=== PATIENT | female | born 1985 | race Caucasian/White ===

== ENCOUNTER 2016-12-14 10:23 | Day surgery (SDC) | payer OTHER ==
[2016-12-14] VITALS (10 sets, daily range): BP systolic 108–122; BP diastolic 60–69; PULSE 72–92; RESP 13–19; O2SAT 99–100
[~2016-12-14] VITALS: Ht 165.1 cm; Wt 52.7 kg
--- NOTE | 2016-12-14 06:48 | PCM.HPANE ---
Patient Data Surgeon Admitting Provider: Attending Provider:Torito Lin MD Primary Care Physician:Myriam Ashby MD Other Provider:Ashly Bautista Anesthesia Reason for Visit Missed Ab Ht/WT & BMI Height (Feet): 5 Height (Inches): 5.5 Weight (Kilograms): 53.97 Body Mass Index 19.00 Allergies Coded Allergies: No Known Allergies (Unverified , 06/06/16) Past Anesthesia History Anesthesia History: Denies:: Abnormal Airway, Anesthesia Reactions, Difficult Intubation, Fam Anesthesia Reaction (mother - nausea), Fam Malignant Hypertherm , Malignant Hyperthermia Diabetes History Hx Diabetes?: No MRSA MRSA: No Medications Hypertension Medication: No Home Meds Incl Beta Clement: No Reported Medications Vits #90/Iron Fum/FA ( Formula Tablet)1 Each Tablet1 Each PO DAILY 12/13/16 Discontinued Scripts Tramadol 50 Mg [id number] Mg PO TID PRN For Pain #30 TABLET Ref 0 Prov:Russell Newman MD 06/07/16 Tramadol 50 Mg [id number] Mg PO Q4H PRN For Pain #20 TABLET Prov:Renzo San DO 11/01/15 Naproxen 500 Mg [id number] Mg PO BID PRN For Pain #30 TABLET Prov:Renzo San DO 11/01/15 History HEENT History: Denies:: Abnormal Airway Cataracts Difficult Intubation Dysphagia Glaucoma Hearing Problem Sinus Problem TMJ Cardiovascular History: Denies:: AICD Abdominal Aortic Aneurism Atrial Fibrillation Cardiac Surgery Chest Pain Congestive Heart Failure Coronary Artery Disease Edema Heart Murmur Hypertension Irregular Heartbeat Pacemaker Peripheral Vascular Hx of Respiratory Problem?: Yes Respiratory History: Positive for:: Asthma Denies:: COPD Emphysema Oxygen Administration Pneumonia Tuberculosis Use of C-PAP Machine Use of Inhalers / NEBS Hx Neurologic Problems?: No Neurological History: Denies:: CVA Dementia Dizziness Headaches Multiple Sclerosis Parkinson's Disease Seizures TIA Hx of GI Problems?: No Gastrointestinal History: Denies:: Cirrhosis Diverticulitis Gall Bladder Disease Gastroesphageal Reflux Gastrointestinal Bleeding Heartburn Hepatitis Hiatal Hernia Liver Disease Hx of Problems?: No Genitourinary History: Denies:: Kidney Stones Urinary Tract Infection Female Hx: Positive for:: Endometriosis (left ovarian cystectomy, salgingectomy Jul 2016) Denies:: Currently (missed ab current admission ) Problems with Breasts? (breast bx- benign) Skin History: Denies:: History Skin Disorders? Pressure Ulcers Hx Musculoskeletal Problems?: No Musculoskeletal History: Denies:: Back Injury Fibromyalgia Joint Replacement Musculoskeletal Trauma Myasthenia Gravis Osteoarthritis Systemic Lupus Hx of Psycho/Social Problems?: No Psycho Social History: Denies:: Anxiety Hx Depression Hx Surgeries?: Yes (appendectomy, ovarian cystectomy-lysis of adhesions, lap) Hx Any Other Health Problems?: Yes Other History: Denies:: Cancer Thyroid Disease History Blood Transfusions: Positive for:: Accept Blood Products? Denies:: Blood Transfusions Hx Diabetes: No Hx Alcohol Use: NoHx Substance Use: No Smoking Status: Never Smoker Have You Smoked inLast 12 mo: No Stop/Bang S-Snoring: Do You Snore Loudly: No T-Tired: feel tired, fatigued: No O-Obsered: Observed not breath: No P-Blood Pressure: treated: No B- Body Mass Index > 35 kg/m2: No A- Age over 50: No N- Neck Large Circumference: No G- Gender Male: No GENET Total Score: 0 GENET Risk Assessment: Low Risk, <3 Yes Risk Assessment Category Category 1A: Patient has history of documented sleep apnea, and HAS NOT received any narcotic, sedative or anesthesia administration during this stay. Category 1B: Patient has history of documented sleep apnea, and HAS received any narcotic , sedative or anesthesia administration during this stay Category 2: Patient has SUSPECTED Obstructive Sleep Apnea, and HAS received any narcotic , sedative or anesthesia administration during this stay. Category 3: Patient has SUSPECTED Obstructive Sleep Apnea and HAS NOT received narcotic, sedative or anesthesia administration during this stay. Category 4: Outpatient in Procedural Areas with known sleep apnea or who screen positive for High Risk via the STOP/BANG questionnaire. Exam Exam General Appearance: Alert, Oriented X3, Cooperative, No Acute Distress HEENT/AIRWAY: MP 2 Lungs: Clear to Auscultation, Normal Air Movement Heart: Exam Unremarkable, Regular Rate/Rhythm, No Murmurs/Rubs/Gallops Plan Impression Patient chart reviewed, patient interviewed and anesthestic plan with risks, benefits, and alternatives discussed, and informed consent obtained. Anesthetic Plan: GA Bene/Risks/Altern/Consents: Yes HP Complete Prior to Induction: Yes Glendy Beckett MD Dec 14, 2016 06:48
--- NOTE | 2016-12-14 09:00 | HP PRE OP ---
[address] [address] PREOPERATIVE HISTORY AND PHYSICAL PATIENT: ASHA PENN : 1985 MR#: [id number] ADMIT: 12/14/2016 JOB ID: [id number] IDENTIFICATION DATA: The patient is a 31-year-old G 2, P 0, AB 1 woman. CHIEF COMPLAINT: First trimester missed , for surgical intervention at patient request. HISTORY OF PRESENT ILLNESS: This patient presented to my office for initial visit on December 13, 2016 at 9 and 5/7 weeks along in her . However, ultrasound in my office, demonstrated size although small, in the 8 and 6/7 weeks size range, and there was no heartbeat, and thus first-trimester missed was diagnosed. Formal ultrasound was also accomplished for confirmation. The patient was given options of observation with expectant management for miscarriage versus suction D and C procedure. She definitively chose D and C, understanding that is a surgery, typically a minor procedure for which she we go home afterwards although there is a chance that there could be complication leading to longer hospital stay, more major surgery, etc. She has understood that there are risks including bleeding, infection, cervical or uterine wall perforation, potential need for laparotomy for repair. There could be anesthetic risks, etc. All questions have been answered, no guarantees have been stated or implied, and the patient has signed informed consent for suction D and C. In summary, then, the patient will be admitted to [facility] on December 14, 2016 on which day she will undergo suction D and C procedure in the setting of first trimester missed . PHYSICAL EXAMINATION: On admission, height 65-1/2 inches. Weight 119 pounds. Blood pressure 104/60. Neck: No thyromegaly. Lungs clear to auscultation and percussion. Heart: Regular in rate and rhythm. Abdomen: Nontender. No mass. Note surgical scarring including laparoscopic scars as well as midline lower abdominal vertical scar with keloid formation. Pelvic examination: Vulva, vagina and cervix. No obvious epithelial abnormality. No obvious uterine or adnexal mass, uterus mildly enlarged, consistent with early . DIAGNOSTIC DATA: Preoperative hemoglobin 13.3, platelets 253, O-positive, TSH normal at 1.37. IMPRESSION: 1. First-trimester missed , with patient requesting suction D and C, as therapy. 2. Prior first trimester elective termination in 2007, at time of significant endometriosis condition with pain, having been told that she might have complications with the related to the endometriosis. 3. Surgical history: a. Elective termination, 2007. b. Laparoscopy in 2007, endometriosis. c. Laparoscopy in 2008, endometriosis. d. Laparotomy via midline lower abdominal incision in July of 2016, with finding of severe (stage 4) endometriosis. There was a large left ovarian cyst reportedly, left ovary adherence to colon wall, significant bowel adhesions with partial obstruction, left ureteral obstruction related to adhesions. Procedures performed at laparotomy include adhesiolysis, removal of left ovary and tube, no bowel resection or right tubal surgery. e. Appendectomy (1997). 4. Stage 4 endometriosis, see prior surgical history in July 2016. Note significant surgical history, significant adhesions, reported right tubal obstruction although intrauterine occurred as noted currently, and blood in stool around period time over time although having resolved during the past 20 days during this (prior colonoscopies reportedly did not see endometriosis, although cheese cooker reported that they would not necessarily see it, but the bowel lining was boggy and narrowed. Note that following surgery in July 2016, period pain became much more tolerable, generalized pelvic pain throughout the month diminished or disappeared, and left flank pain noted preoperatively resolved. 5. Infertility, having tried for four years to become before this current unsuccessful first trimester , noting endometriosis history and recent major surgery with adhesions, tubal finding, etc. 6. Asthma history, no medications utilized. 7. Allergy to BEES. 8. History of urinary tract infection or vaginal infection, details? 9. Family history of diabetes (parents, grandfather), hypertension (mother), asthma (mother). PLAN: The patient will undergo suction D and C procedure for first trimester missed on December 14, 2016.
[~2016-12-14 10:23] MED LIST: PREN-100 PO
[2016-12-14] MEDS ORDERED: Dexamethasone 4 mg/mL Inj ONE (10:24)
[2016-12-14] MEDS ORDERED: fentaNYL-PF 50 mCg/mL 2 mL Inj ONE (10:24)
[2016-12-14] MEDS ORDERED: Ondansetron 2 mg/mL 2 mL Inj ONE (10:24)
[2016-12-14] MEDS ORDERED: Propofol 10,000 mCg/mL 20 mL Inj ONE (10:24)
[2016-12-14] MEDS ORDERED: Lactated Ringer's 1,000 ML IV ONE (11:05)
[2016-12-14] MEDS ORDERED: HYDROmorphone 1 mg/mL Inj IVPUSH PRN ×2 (13:25→13:35)
[2016-12-14] MEDS ORDERED: MetoCLOpramide 5 mg/mL 2 mL Inj IVPUSH PRN ×2 (13:25→13:35)
[2016-12-14] MEDS ORDERED: Ondansetron 2 mg/mL 2 mL Inj IVPUSH PRN ×2 (13:25→13:35)
[2016-12-14] MEDS ORDERED: Lactated Ringer's 1,000 ML IV SCH (13:33)
[2016-12-14] MEDS ORDERED: Lactated Ringer's 500 ML IV PRN (13:33)
[2016-12-14] MEDS ORDERED: EPHEDrine Sulfate 50 mg/mL Inj IVPUSH PRN (13:35)
[2016-12-14] MEDS ORDERED: Dexamethasone 4 mg/mL Inj IVPUSH PRN (13:35)
[2016-12-14] MEDS ORDERED: hydrALAZINE 20 mg/mL Inj IVPUSH PRN (13:35)
[2016-12-14] MEDS ORDERED: fentaNYL-PF 50 mCg/mL 2 mL Inj IVPUSH PRN (13:35)
[2016-12-14] MEDS ORDERED: Atropine 0.4 mg/mL Inj IVPUSH PRN (13:35)
[2016-12-14] MEDS ORDERED: Labetalol 5 mg/mL 4 mL Inj IV PRN (13:35)
[2016-12-14] MEDS ORDERED: Phenylephrine 10,000 mCg/mL Inj IVPUSH PRN (13:35)
--- NOTE | 2016-12-14 15:36 | PCM.ANEP1 ---
Post Anesthesia Phase 1 PACU Phase 1 Assessment Vital Signs Vital Signs Date Time Temp Pulse Resp B/P Pulse Ox O2 Delivery O2 Flow Rate FiO2 12/14/16 15:25 36.4 78 16 122/65 100 Room Air 12/14/16 15:15 36.7 72 16 110/60 100 Room Air 12/14/16 15:05 79 15 113/69 99 Room Air 12/14/16 15:00 36.7 74 15 117/63 100 Room Air 12/14/16 14:55 82 15 122/67 99 Room Air 12/14/16 14:50 83 19 122/67 100 Room Air 12/14/16 14:45 81 14 112/62 100 Room Air 12/14/16 14:40 78 13 111/69 100 Room Air 12/14/16 14:35 36.9 92 17 112/68 100 Simple Mask 8 12/14/16 11:00 36.9 72 14 108/60 100 Room Air Anesthetic Administered: GA Level of Alertness: Awake, talking NY's with Equal Strength: Yes Pain: No Oxygen Delivery: Simple Mask Lungs: Clear to Auscultation, Normal Air Movement Glendy Beckett MD Dec 14, 2016 15:36
--- NOTE | 2016-12-14 15:43 | PCM.ANEP2 ---
Post Anesthesia Evaluation ASA/CMS Post Anesthesia VS in Patient's Normal Range?: Yes Resp Stable; Airway Patent?: Yes CV Function & Hydration Stable: Yes Mental Status Recovered?: Yes Pain control Satisfactory?: Yes N/V Control Satisfactory?: Yes Glendy Beckett MD Dec 14, 2016 15:43
--- NOTE | 2016-12-15 21:33 | OP ---
[address] [address] OPERATIVE REPORT PATIENT: ASHA PENN : 1985 MR#: [id number] ADMIT: 12/14/2016 JOB ID: [id number] DATE OF SURGERY: 12/14/2016 SURGEON: Torito Lin MD. LABORATORY ANIMAL CARE VETERINARIAN: None. PREOPERATIVE DIAGNOSIS(ES): First trimester missed . POSTOPERATIVE DIAGNOSIS(ES): First trimester missed . ANESTHESIA: General. PROCEDURES PERFORMED: 1. Suction dilatation and curettage. 2. Intraoperative transabdominal ultrasound per mobile marketing manager. FINDINGS AT SURGERY: Uterus sounded to 11.5 cm, consistent with mild uterine enlargement in setting of known first-trimester . Cervix readily dilated to 8-9 mm. There was tissue and blood recovered from the uterus, yet more blood. Ultrasound confirmation was undertaken to delineate clean endometrial lining without any residual products of conception. Uterine bleeding was minimal at procedure close, and uterine lining was clear as described, noted per ultrasonography PROCEDURE: The patient was placed in supine position on the operative table and general anesthesia was induced. She was then very carefully repositioned in the low dorsal lithotomy position and prepped and draped in the usual sterile manner. After appropriate time-out, a weighted speculum was placed posteriorly and a tenaculum on the anterior cervical lip and another on the posterior cervical lip. The uterus was sounded followed by ready dilatation up to 8-9 mm point. Size 8 suction tip was then selected and suction curettage was then accomplished with return of some tissue yet more in the way of blood, total in the 550-600 cc range. To ensure that all the products of conception were recovered and that less was noted relative to the blood although probably spread out due to the increased blood loss suctioned from the uterus. clinical lab technologist was called up and he utilized the ultrasound units from the [facility] to transabdominally visualize the uterus and uterine cavity with instruments including suctions kit intermittently in place. This ultrasound was accomplished after suction curettage followed by gentle sharp curettage and then final suction curettage at that point, without any additional tissue and only minimal blood recovered. Note Keeper reported clear uterine cavity, confirming our suspicion that all the products of conception had been removed although needing clarification in light of the prominent blood passage relative to visible and palpable tissue removal. Procedure was thus completed. All instruments removed from the uterus and cervix and vagina, and instrument and sponge counts were all found to be correct. Patient was returned to the supine position and awakened, and then taken to recovery room. ESTIMATED BLOOD LOSS: 600 cc. COMPLICATIONS: Blood loss greater than average, well-tolerated by patient from a hemodynamic standpoint. PROGNOSIS: Good for surgical recovery. The patient has been encouraged to contact our office if any high fever, persistent bleeding, excessive pain, or other problem. This is standard advice for patient's having undergone D and C procedure.
--- NOTE | 2016-12-18 12:22 | PATH ---
SURGICAL PATHOLOGY Attending Physician:Torito Lin M.D CASE STATUS: Signed Out PATIENT NAME: ASHA PENN PID: [id number] : 1985 DATE COLLECTED:12/14/2016 00:00 SPECIMEN: 1: Products of conception 2: Products of conception CLINICAL HISTORY: MISSED 1). PRODUCTS OF CONCEPTION 2). PRODUCTS OF CONCEPTION FINAL DIAGNOSIS: 1.PRODUCTS OF CONCEPTION: IMMATURE CHORIONIC VILLI AND DECIDUALIZED ENDOMETRIUM (PRODUCTS OF CONCEPTION). 2.PRODUCTS OF CONCEPTION: RARE FRAGMENTS OF INTERMEDIATE TROPHOBLAST TISSUE. DECIDUALIZED ENDOMETRIUM. ICD10 CODE O02.1 GROSS DESCRIPTION: Received are two formalin-filled containers, each labeled with the patient's name. 1. Received in formalin, labeled with the patient's name and "products of conception" is a collection of bangura tissue fragments measuring 5.0 x 4.0 x 3.0 cm in aggregate. No parts are identified. Railroad Wheels And Axles Inspector sections are submitted in cassettes 1A, 1B, 1C and 1D. 2. Received in formalin, labeled with the patient's name and "products of conception" is a collection of bangura tissue fragments measuring 3.0 x 3.0 x 2.0 cm in aggregate. No parts are identified. Railroad Wheels And Axles Inspector sections are submitted in cassettes 2A, 2B, 2C and 2D. ([facility]:[id number]) MICRO DESCRIPTION: See diagnosis. ICD-9 CODES: CPT CODES: 1: 22306 2: 11089 Electronically Signed Out Candido Davidson MD [facility] [address], [place] [address] Technical component performed at [facility], [facility] [address], [place], [address]
== END 2016-12-14 23:59 | disposition home or self-care (01) ==
LOC: SAS 10:23
PROVIDERS: ATTEND Obstetrics & Gynecology
PROC: 10D17ZZ Extraction of Products of Conception, Retained, Via Natural or Artificial Opening (ICD-10-PCS; principal; 2016-12-14 12:45)
DX: O02.1 Missed abortion (principal); Z3A.09 9 weeks gestation of pregnancy
CPT/HCPCS: 59820; J1100; J2250; J2405; J3010; J7120